=== PATIENT | female | born 1990 | race Two or more races ===

== ENCOUNTER 2021-08-19 21:54 | Emergency (ER) | payer MEDICAID, OTHER ==
[~2021-08-19] VITALS: Ht 149.9 cm; Wt 108.0 kg
[2021-08-19] MEDS ORDERED: ALUM & MAG HYDROX-SIMETH LIQ(MAALOX) 30 ML PO ONE (23:00)
[2021-08-19] MEDS ORDERED: FAMOTIDINE 20 MG TAB PO ONE (23:00)
[2021-08-19] MEDS ORDERED: ONDANSETRON ODT 4 MG TAB PO ONE (23:30)
[2021-08-19 23:43] LABS: Basophils # (auto) 0.1 10 ^3/uL (0-0.2); Basophils % (auto) 0.7 % (0.0-2.0); Eosinophils # (auto) 0.6 10 ^3/uL (0-0.8); Eosinophils % (auto) 7.9 % (0.0-7.0); Hematocrit 42.9 % (36.0-46.0); Hemoglobin 14.3 g/dL (12.2-16.2); Lymphocytes # (auto) 2.4 10 ^3/uL (0.4-5.4); Mean Corpuscular Hemoglobin 29.7 pg (28.0-32.0); Mean Corpuscular Hgb Conc. 33.4 g/dL (32.0-36.0); Mean Corpuscular Volume 88.8 fL (80.0-100.0); Monocytes # (auto) 0.5 10 ^3/uL (0-1.3); Monocytes % (auto) 5.8 % (0.0-12.0); Neutrophils # (auto) 4.5 10 ^3/uL (1.6-8.6); Neutrophils % (auto) 55.6 % (37.0-80.0); Nucleated Red Blood Cells % 0.1 %; Red Blood Cells 4.83 10^6/uL (4.0-5.20); Red Cell Distribution Width 12.8 % (11.8-14.3); White Blood Cell 8.1 10^3/uL (4.4-10.8)
[2021-08-20] LABS: Albumin 3.3 g/dL (3.4-5.0); Calcium 8.2 mg/dL (8.5-10.1); Potassium 3.7 mmol/L (3.5-5.1)
[2021-08-20 00:06] LABS: BUN/Creatinine Ratio 16.7; Bilirubin, Total 0.3 mg/dL (0.2-1.0); Total Protein 7.3 g/dL (6.4-8.2)
[2021-08-20 01:13] LABS: Urine Bacteria NONE SEEN /hpf (None Seen); Urine Blood Negative /uL (Negative); Urine Mucus FEW (None Seen); Urine Specific Gravity 1.019 (1.001-1.035); Urine WBC 4 /hpf (0 - 5)
[2021-08-20 02:08] VITALS: BP 163/96
== END 2021-08-20 02:10 | disposition home or self-care (01) ==
LOC: ER 21:57
DX: K29.70 Gastritis, unspecified, without bleeding (principal); Z88.2 Allergy status to sulfonamides
CPT/HCPCS: 36415; 76705; 80053; 81001; 81025; 83690; 85025; 93005; 99285; Q0162

== ENCOUNTER 2022-04-22 12:30 | Emergency (ER) | payer MEDICAID ==
[~2022-04-22] VITALS: Ht 149.9 cm; Wt 104.3 kg
[2022-04-22 17:08] VITALS: BP 151/99
[2022-04-22] MEDS ORDERED: ACET-1158 PO (17:53)
[2022-04-22] MEDS ORDERED: AMOX-277 PO (17:53)
[2022-04-22] MEDS ORDERED: ACETAMINOPHEN 325 MG TAB PO ONE (18:00)
[2022-04-22] MEDS ORDERED: cefTRIAXone SOD 1,000 MG VL IM ONE (18:00)
== END 2022-04-22 18:12 | disposition home or self-care (01) ==
LOC: ER 12:30
DX: K02.9 Dental caries, unspecified (principal); J45.909 Unspecified asthma, uncomplicated; Z90.49 Acquired absence of other specified parts of digestive tract; Z79.2 Long term (current) use of antibiotics; Z79.899 Other long term (current) drug therapy; Z88.2 Allergy status to sulfonamides
CPT/HCPCS: 96372; 99283; J0696